=== PATIENT | male | born 1975 | race American Indian/Alaskan Native ===

== ENCOUNTER 2018-04-06 12:33 | Emergency (ER) | payer SELFPAY ==
[2018-04-06 13:54] LABS: Hematocrit 46.1 % (35.5-45.6); Hemoglobin 15.4 gm/dl (11.8-15.2); Mean Corpuscular HGB Conc 33 % (32-34); Mean Corpuscular Hemoglobin 32 pg (28-32); Mean Corpuscular Volume 96 fl (84-94); Platelet Count 255 K/mm3 (140-440); Red Blood Count 4.79 M/mm3 (3.65-5.03); Red Cell Distribution Width 14.1 % (13.2-15.2)
[2018-04-06 14:20] LABS: Alanine Aminotransferase 15 units/L (7-56); Albumin 4.2 g/dL (3.9-5); BUN/Creatinine Ratio 12; Blood Urea Nitrogen 11 mg/dL (9-20); Calcium 9.2 mg/dL (8.4-10.2); Hemolysis Index 5; Lipase 18 units/L (13-60)
[2018-04-06] MEDS ORDERED: ZOFRAN ODT PO ONE (14:51)
--- NOTE | 2018-04-06 15:08 | Emergency Department Report ---
HPI - General Chief Complaint: Abdominal Pain Time Seen by Provider: 04/06/18 14:46 - HPI HPI: Patient is a 41-year-old male with no prominent medical history who presents to ED complaining of he states diarrhea is nonbloody, with diarrhea for the past 3 weeks. Patient states the pain to ensure there is intermittent for the past 2 weeks. He states that the vomiting started today on parts at that ease been experiencing abdominal pain localized to his mid upper region. He denies fevers/chills/shortness of breath/dizziness/trauma ED Past Medical Hx - Past Medical History Previous Medical History?: No - Surgical History Past Surgical History?: No - Social History Smoking Status: Never Smoker Substance Use Type: None - Medications Home Medications: Home Medications Medication Instructions Recorded Confirmed Last Taken Type Acetaminophen [Tylenol] 2 cap PO TID #40 capsule 04/06/18 Unknown Rx Antacid [Alum-Mag Hydrox-Simeth 15 ml PO TID #120 ml 04/06/18 Unknown Rx [id number]/5Ml] Ondansetron (Nf) [Zofran TAB] 8 mg PO Q8HR PRN #20 tablet 04/06/18 Unknown Rx ED Review of Systems ROS: Stated complaint: N/V/D, ABD PAIN Other details as noted in HPI Constitutional: denies: chills, fever ENT: denies: ear pain, throat pain Respiratory: denies: cough, shortness of breath, wheezing Endocrine: no symptoms reported Gastrointestinal: denies: abdominal pain, nausea, diarrhea Genitourinary: denies: urgency, dysuria Skin: denies: rash, lesions Physical Exam - Physical Exam Vital Signs: Vital Signs 04/06/18 12:42 Temperature 97.8 F Pulse Rate 93 H Respiratory 16 Rate Blood Pressure 105/69 O2 Sat by Pulse 97 Oximetry Physical Exam: GENERAL: Alert and oriented x3, no apparent distress, Normal Gait, atraumatic. HEAD: Head is normocephalic and a-traumatic. LUNGS: Symetrical with respiration, No wheezing, no rales or crackles, CTAB. HEART: S1, S2 present, regular rate and rhythm without murmur, no rubs, no gallops. Non tender to palpation ABDOMEN: No organomegaly was noted,Positive bowel sounds, soft, and non- distended. Mildly tenderness to palpation on all Quadrants, NO CVA tenderness. BACK: Full range of motion, no spinal tenderness, nontender to palpation. SKIN: Warm and dry, No lesions, No ulceration or induration present. ED Course Vital Signs 04/06/18 12:42 Temperature 97.8 F Pulse Rate 93 H Respiratory 16 Rate Blood Pressure 105/69 O2 Sat by Pulse 97 Oximetry ED Medical Decision Making - Lab Data Result diagrams: 04/06/18 13:36 04/06/18 13:36 - Radiology Data Radiology results: report reviewed, image reviewed FINDINGS: Lung bases: Normal. Liver: Normal. Biliary system: Normal. Pancreas: Normal. Spleen: Normal. Kidneys/ureters/bladder: Normal. Adrenal glands: Normal. Aorta: Normal. Intestines: Within normal limits given no oral contrast was administered. Appendix: Not confidently identified. Ascites: None. Adenopathy: None. Musculoskeletal: Normal. IMPRESSION: Unremarkable CT scan of the abdomen and pelvis without contrast. Transcribed By: TTR Dictated By: ROSA M MARTINEZ JR, MD Electronically Authenticated By: ROSA M MARTINEZ JR, MD Signed Date/Time: 04/06/18 1526 - Medical Decision Making 42-year-old male presents with gastroenteritis ED course: Patient received GI cocktail, Zofran and ED. CT of the abdomen and pelvis negative Patient reports feeling much better. Discussed discussed findings with the patient. Discussion palpation appropriate rest, plenty of fluids in the Kristy diet Vital signs normalized prior to discharge Patient states he understands instructions and will follow up with primary care physician. Discussed the patient has symptoms worsen to return to ED follow-up with GI Critical care attestation.: If time is entered above; I have spent that time in minutes in the direct care of this critically ill patient, excluding procedure time. ED Disposition Clinical Impression: Gastroenteritis Disposition: DC-01 TO HOME OR SELFCARE Is pt being admited?: No Does the pt Need Aspirin: No Condition: Stable Instructions: Gastroenteritis (ED), Acute Nausea and Vomiting (ED), Food Poisoning (ED), Abdominal Pain (ED) Additional Instructions: Make sure to follow up with the primary care physician as discussed. Take all your medications as you've been prescribed. If you have any worsening symptoms or develop new symptoms please return to ED immediately. Prescriptions: Acetaminophen [Tylenol] 2 cap PO TID #40 capsule Antacid [Alum-Mag Hydrox-Simeth [id number]/[id number]] 15 ml PO TID #120 ml Ondansetron (Nf) [Zofran TAB] 8 mg PO Q8HR PRN #20 tablet PRN Reason: Vomiting Referrals: PRIMARY CARE, [Primary Care Provider] - 3-5 Days [facility] [Provider Group] - 3-5 Days [facility] [Outside] - 3-5 Days [facility] [Outside] - 3-5 Days Forms: Work/School Release Form(ED) Time of Disposition: 15:50
--- NOTE | 2018-04-06 15:27 | Cat Scan Report ---
CT ABDOMEN PELVIS WITHOUT CONTRAST: HISTORY: abdominal pain. COMPARISON: none. TECHNIQUE: Helical CT in 1.25mm intervals without IV contrast. Sagittal and coronal reconstructions. FINDINGS: Lung bases: Normal. Liver: Normal. Biliary system: Normal. Pancreas: Normal. Spleen: Normal. Kidneys/ureters/bladder: Normal. Adrenal glands: Normal. Aorta: Normal. Intestines: Within normal limits given no oral contrast was administered. Appendix: Not confidently identified. Ascites: None. Adenopathy: None. Musculoskeletal: Normal. IMPRESSION: Unremarkable CT scan of the abdomen and pelvis without contrast.
[2018-04-06] MEDS ORDERED: LIDOCAINE VISCOUS 2% PO ONE (15:47)
[2018-04-06] MEDS ORDERED: BANOPHEN PO ONE (15:47)
[2018-04-06] MEDS ORDERED: ALUM-MAG HYDROX-SIMETH 200-200-20MG/5ML PO ONE (15:47)
[2018-04-06 16:59] VITALS: BP 119/81
[2018-04-06 18:00] LABS: Bilirubin,Urine NEG (Negative); Blood,Urine MOD (Negative); Color,Urine Yellow (Yellow); Mucus,Urine 3+ /HPF; Urobilinogen,Urine < 2.0 mg/dL (<2.0)
[2018-04-06 18:07] LABS: Amorphous Crystals,Urine 3+
== END 2018-04-06 17:00 | disposition home or self-care (01) ==
LOC: ED 12:33
DX: K52.9 Noninfective gastroenteritis and colitis, unspecified (principal)
CPT/HCPCS: 36415; 74176; 80053; 81001; 83690; 85027; 99284; Q0162; Q0163